=== PATIENT | male | born 1990 | race Two or more races ===

== ENCOUNTER 2022-02-11 00:44 | Emergency (ER) | payer OTHER ==
[~2022-02-11] VITALS: Ht 180.3 cm; Wt 136.1 kg
[2022-02-11] MEDS ORDERED: ALL DAY ALLERGY10 M3 PO (05:11)
[2022-02-11] MEDS ORDERED: ACETAMINOPHEN650 M2 PO (05:11)
[2022-02-11] MEDS ORDERED: AZITHROMYCIN500 MG PO (05:11)
== END 2022-02-11 05:16 | disposition home or self-care (01) ==
LOC: ER 00:44
DX: A49.3 Mycoplasma infection, unspecified site (principal); J06.9 Acute upper respiratory infection, unspecified; Z20.822 Contact with and (suspected) exposure to COVID-19

== ENCOUNTER 2022-04-17 09:35 | Outpatient (CLI) | payer OTHER ==
[~2022-04-17 09:35] MED LIST: ACETAMINOPHEN650 M2; ACETAMINOPHEN650 M2 PO; ALL DAY ALLERGY10 M3 PO; AZITHROMYCIN500 MG PO
[2022-04-18] MEDS ORDERED: COZAAR25 MG PO (16:51)
[2022-04-18] MEDS ORDERED: MOUNJARO5 MG/0.5 M SQ (16:52)
== END 2022-04-17 09:36 | disposition home or self-care (01) ==
LOC: LAB 09:35
DX: E11.65 Type 2 diabetes mellitus with hyperglycemia (principal); E55.9 Vitamin D deficiency, unspecified

== ENCOUNTER 2022-04-18 16:25 | Emergency (ER) | payer OTHER ==
[~2022-04-18] VITALS: Ht 88.9 cm; Wt 127.0 kg
[~2022-04-18 16:25] MED LIST changes: -COZAAR25 MG PO; -MOUNJARO5 MG/0.5 M SQ
[2022-04-18] MEDS ORDERED: COZAAR25 MG PO (16:51)
[2022-04-18] MEDS ORDERED: MOUNJARO5 MG/0.5 M SQ (16:52)
== END 2022-04-19 00:29 | disposition home or self-care (01) ==
LOC: ER 16:25
DX: E87.0 Hyperosmolality and hypernatremia (principal)

== ENCOUNTER → 2022-04-18 | Outpatient (CLI) | payer OTHER ==
[~2022-04-18] MED LIST changes: +COZAAR25 MG PO; +MOUNJARO5 MG/0.5 M SQ
== END | disposition home or self-care (01) ==
LOC: LAB 11:12
DX: E87.6 Hypokalemia (principal)

== ENCOUNTER 2023-01-03 08:08 | Outpatient (CLI) | payer OTHER ==
[~2023-01-03 08:08] MED LIST changes: +COZAAR25 MG PO; +MOUNJARO5 MG/0.5 M SQ
== END 2023-01-03 08:18 | disposition home or self-care (01) ==
LOC: RAD 08:08
DX: M53.3 Sacrococcygeal disorders, not elsewhere classified (principal); M54.50 Low back pain, unspecified

== ENCOUNTER 2023-05-26 20:51 | Emergency (ER) | payer OTHER ==
[~2023-05-26] VITALS: Ht 180.3 cm; Wt 104.3 kg
[2023-05-26] MEDS ORDERED: GLIPIZIDE XL2.5 MG (21:02)
[2023-05-26] MEDS ORDERED: FAMOTIDINE/PF 20 MG/2 ML VIAL IV STA (21:24)
[2023-05-26] MEDS ORDERED: 0.9 % SODIUM CHLORIDE 1,000 ML IV STA (21:24)
[2023-05-26] MEDS ORDERED: ACETAMINOPHEN 500 MG GEL..CAP PO ONE (21:45)
[2023-05-26 22:09] LABS: HEMOGLOBIN 14.2 g/dL (13-16.00); MEAN CELL VOLUME 80.9 fL (80.0-100.00); MEAN CORPUSCULAR HGB CONC 34.6 g/dl (32.0-36.0); PLATELET COUNT 229 K/uL (150-450); RED BLOOD COUNT 5.07 M/uL (4.00-6.00); RED CELL DISTRIBUTION WIDTH 13.8 % (11.5-14.5)
[2023-05-26 22:19] LABS: PH,URINE 7.5 (5.0-8.0); URINE APPEARANCE Clear; URINE BILIRRUBIN Negative (NEGATIVE); URINE BLOOD Negative; URINE COLOR Yellow; URINE GLUCOSE Negative (NEGATIVE); URINE LEUKOCYTE Trace; URINE NITRATE Negative; URINE PROTEIN Negative (NEGATIVE); URINE UROBILINOGEN 0.2 E.U./dl
[2023-05-26 22:23] LABS: URINE BACTERIA 7.5 uL (0.0-1933); URINE EPITHELIAL CELLS 4.1 uL (0.0-38.8); URINE WBC 2.4 uL (0.0-23.2)
[2023-05-26 22:29] LABS: ALBUMIN 3.9 gm/dL (3.4-5.0); BILIRUBIN TOTAL 0.62 mg/dL (0.3-1.2); CALCIUM 8.6 mg/dL (8.5-10.1); CREATININE SERUM 1.23 mg/dL (0.70-1.30); GFR 68.19; GLOBULINA 3.7 G/DL (2.4-3.5); POTASSIUM 3.58 mEq/L (3.5-5.1); TOTAL PROTEIN 7.6 gm/dL (6.4-8.2)
== END 2023-05-27 00:08 | disposition home or self-care (01) ==
LOC: ER 20:51
PROVIDERS: General Practice
DX: R07.89 Other chest pain (principal); U07.1 COVID-19; R53.1 Weakness